=== PATIENT | female | born 1995 | race Caucasian/White ===

== ENCOUNTER → 2020-11-25 | Day surgery (SDC) | payer BC, SELFPAY ==
[2020-11-24 14:18] LABS: BASOPHILS % (AUTO) 0.5 % (0.0-2.0); EOSINOPHILS % (AUTO) 0.4 % (0.0-4.0); HEMATOCRIT 40.4 % (36-48); HEMOGLOBIN 13.7 g/dL (12.0-16.0); LYMPHOCYTES # (AUTO) 1.6 K/uL (1.0-5.5); LYMPHOCYTES % (AUTO) 22.4 % (20.5-51.5); MEAN CORPUSCULAR HEMOGLOBIN 29 pg (27-31); MEAN CORPUSCULAR HGB CONC 34 % (32-36); MEAN CORPUSCULAR VOLUME 84 fL (79.0-98.0); MONOCYTES # (AUTO) 0.4 K/uL (0.0-1.0); MONOCYTES % (AUTO) 5.1 % (1.7-9.3); NEUTROPHILS # (AUTO) 5.3 K/uL (1.8-7.7); NEUTROPHILS % (AUTO) 71.6 % (40.0-70.0); PLATELET COUNT (AUTO) 313 K/uL (130-430); RED BLOOD CELL COUNT(AUTO) 4.79 MIL/uL (4.2-6.2); RED CELL DISTRIBUTION WIDTH 13.2 % (9.0-15.0); WHITE BLOOD COUNT (AUTO) 7.4 K/uL (4.8-10.8)
[2020-11-24 14:20] LABS: BILIRUBIN,URINE NEGATIVE (NEGATIVE); BLOOD, URINE NEGATIVE (NEGATIVE); COLOR,URINE YELLOW (YELLOW); GLUCOSE,URINE NEGATIVE (NEGATIVE); KETONES,URINE 1+ (NEGATIVE); LEUKOCYTE ESTERASE ,URINE NEGATIVE (NEGATIVE); NITRITE, URINE NEGATIVE (NEGATIVE); PROTEIN URINE NEGATIVE (NEGATIVE); UROBILINOGEN,URINE 0.2 (0.2-1.0)
[2020-11-24 14:21] LABS: CLARITY/URINE SLIGHTLY HAZY (CLEAR)
[~2020-11-25] VITALS: Ht 152.4 cm; Wt 51.7 kg
[~2020-11-25] MED LIST: HYDR-3917 PO; HYDROcodone/ACETAMIN 5-325 MG TAB (NORCO/ VICODIN) PO PRN; HYDROmorphone 1 MG/ML INJ. CARTRIDGE IVP PRN; KETOROLAC TROMETHAMINE 30 MG VIAL IVP PRN; METOCLOPRAMIDE HCL 10 MG/2 ML VIAL IVP PRN; MIDAZOLAM HCL 5 MG/5 ML VIAL IVP PRN; NAPR-688 PO; ONDANSETRON HCL 4 MG/2 ML VIAL IVP PRN; OXYCODONE/ACETAMINOPHEN 5-325 TABLET PO PRN
[2020-11-25 09:15] VITALS: BP_SYST 98
== END | disposition home or self-care (01) ==
LOC: SDS 05:54
PROVIDERS: ATTEND Specialist
DX: O03.4 Incomplete spontaneous abortion without complication (principal); F41.9 Anxiety disorder, unspecified; Z79.899 Other long term (current) drug therapy
CPT/HCPCS: 36415; 81003; 84702; 85025; 86886; 86900; 86901; 87086; 88305

== ENCOUNTER 2020-11-29 20:00 | Emergency (ER) | payer BC, OTHER, SELFPAY ==
[~2020-11-29] VITALS: Ht 152.4 cm; Wt 51.7 kg
--- NOTE | 2020-11-29 20:08 | NUR ---
Patient to ER bed 7 to gown for evaluation. Side rails up.
[2020-11-29 20:10] VITALS: BP_SYST 122
--- NOTE | 2020-11-29 20:20 | NUR ---
Patient AAOx4 and ambulatory c/o increasing worsening abdominal cramps and large blood clots from D&C done on Monday with Dr. Michele. Patient was and lost fetus. patient stating worsening cramps radiating to lower back. currently stating pain at 7. has been taking tylenol with no relief. Denies any N/V/D, SOB or chest pain. Denies feeling dizzy or lightheaded. VSS.
--- NOTE | 2020-11-29 20:25 | NUR ---
MARCOS WEN AT BEDSIDE FOR PATIENT EVALUATION.
[2020-11-29] MEDS ORDERED: KETOROLAC TROMETHAMINE 60 MG/2 ML VIAL IM ONE (20:30)
--- NOTE | 2020-11-29 20:39 | NUR ---
Blood for labwork drawn. Patient tolerated well.
--- NOTE | 2020-11-29 20:45 | NUR ---
Urine collected and sent to lab for analysis. HCG positive.
[2020-11-29 20:59] LABS: BASOPHILS % (AUTO) 0.4 % (0.0-2.0); EOSINOPHILS # (AUTO) 0.2 K/uL (0.0-0.4); EOSINOPHILS % (AUTO) 1.7 % (0.0-4.0); HEMATOCRIT 34.5 % (36-48); HEMOGLOBIN 11.2 g/dL (12.0-16.0); LYMPHOCYTES % (AUTO) 32.8 % (20.5-51.5); MEAN CORPUSCULAR HEMOGLOBIN 28 pg (27-31); MEAN CORPUSCULAR HGB CONC 33 % (32-36); MEAN CORPUSCULAR VOLUME 85 fL (79.0-98.0); MONOCYTES # (AUTO) 0.5 K/uL (0.0-1.0); MONOCYTES % (AUTO) 5.8 % (1.7-9.3); NEUTROPHILS # (AUTO) 5.5 K/uL (1.8-7.7); NEUTROPHILS % (AUTO) 59.3 % (40.0-70.0); PLATELET COUNT (AUTO) 293 K/uL (130-430); RED BLOOD CELL COUNT(AUTO) 4.06 MIL/uL (4.2-6.2); WHITE BLOOD COUNT (AUTO) 9.3 K/uL (4.8-10.8)
[2020-11-29 21:08] LABS: CALCIUM 8.9 mg/dL (8.4-11.0); CREATININE 0.75 mg/dL (0.55-1.30)
--- NOTE | 2020-11-29 21:10 | NUR ---
Patient taken to US with tech. HUNTER. no distress noted.
[2020-11-29 21:19] LABS: ALBUMIN 3.3 g/dL (3.4-4.8); TOTAL BILIRUBIN 0.4 mg/dL (0.0-1.0)
[2020-11-29] MEDS ORDERED: NAPR-688 PO (22:03)
[2020-11-29] MEDS ORDERED: HYDR-3917 PO ×2 (22:03→22:11)
[2020-11-29 22:15] VITALS: BP_SYST 122
--- NOTE | 2020-11-29 22:17 | NUR ---
Patient given written and verbal discharge instructions and verbalizes understanding. Dr. Jane RODRÍGUEZ MD discussed with patient the results and treatment provided. Patient in stable condition. ID arm band removed. IV catheter removed intact and dressing applied, no active bleeding. Rx of [place], Naproxen given. Patient educated on pain management and to follow up with PMD. Pain Scale 0/10. Opportunity for questions provided and answered. Medication side effect fact sheet provided.
== END 2020-11-29 22:17 | disposition home or self-care (01) ==
LOC: SED 20:00
DX: O02.89 Other abnormal products of conception (principal); Z79.899 Other long term (current) drug therapy; Z98.890 Other specified postprocedural states
CPT/HCPCS: 36415; 76830; 76857; 80053; 84702; 85025; 85730; 96372; 99284; J1885; 86886; 86900; 86901